=== PATIENT | female | born 1960 | race Caucasian/White ===

== ENCOUNTER 2019-05-27 11:41 | Emergency (ER) | payer OTHER ==
[~2019-05-27] VITALS: Ht 160 cm; Wt 186.0 kg
[2019-05-27] MEDS ORDERED: ZESTRIL10 MG PO (12:03)
[2019-05-27] MEDS ORDERED: PERCOCET 5-3251 EACH PO (16:03)
[2019-05-27] MEDS ORDERED: ZOFRAN4 MG PO (16:03)
[2019-05-29] MEDS ORDERED: OMEPRAZOLE20 MG PO (14:26)
[2019-05-29] MEDS ORDERED: SYNTHROID112 MCG PO (14:27)
[2019-05-29] MEDS ORDERED: CITALOPRAM HBR40 MG PO (14:27)
== END 2019-05-27 16:15 | disposition home or self-care (01) ==
LOC: ED 11:41
DX: K80.70 Calculus of gallbladder and bile duct without cholecystitis without obstruction (principal); I10 Essential (primary) hypertension; F17.200 Nicotine dependence, unspecified, uncomplicated; Z79.899 Other long term (current) drug therapy
CPT/HCPCS: 80053; 81001; 83690; 84703; 85025; 99284

== ENCOUNTER 2019-05-31 11:55 | Day surgery (SDC) | payer OTHER ==
[~2019-05-31] VITALS: Ht 160 cm; Wt 87.1 kg
[~2019-05-31 11:55] MED LIST: CITALOPRAM HBR40 MG PO; LISINOPRIL-HCT1 EACH PO; OMEPRAZOLE20 MG PO; PERCOCET 5-3251 EACH PO; SYNTHROID112 MCG PO; ZESTRIL10 MG PO; ZOFRAN4 MG PO
--- NOTE | 2019-05-31 12:06 | NUR ---
PATIENT'S REQUESTED PRESCRIPTION FOR PATIENT SO HE CAN GET IT FILLED WHILE SHE IS IN SURGERY. DR. ISAAC WROTE PRESCRIPTION. THIS WAS GIVEN TO PATIENT'S , HERMES, TO GO GET FILLED.
--- NOTE | 2019-05-31 15:40 | NUR ---
05/31/19 1540 Kianna Ernst 1535 PATIENT ARRIVES TO PACU UNRESPONSIVE TO PAIN, ORAL AIRWAY IN PLACE. RESP EVEN AND UNLABORED, MASK AT 6 LITERS.
--- NOTE | 2019-05-31 16:29 | NUR ---
PATIENT BACK IN DAY SURGERY ROOM FROM PACU. C/O PAIN 5/10 IN ABDOMEN. GIVEN PUDDING TO EAT. TOLERATING WATER. WILL GIVE PAIN PILL ONCE SHE HAS STARTED EATING PUDDING. ABDOMINAL DRESSINGS CDI. SCDs ON. IV SITE WNL. AT BEDSIDE. CALL LIGHT WITHIN REACH.
--- NOTE | 2019-05-31 16:45 | NUR ---
REQ PAIN MEDICINE FOR 08/29 PAIN. ATE PUDDING THEN NORCO GIVEN.
[2019-05-31] MEDS ORDERED: NORCO 10-325 T1 EACH PO (17:04)
--- NOTE | 2019-05-31 17:36 | NUR ---
PT HAS BEEN UP TO BR VOIDS QS. TOLERATED PAIN MEDS. AMB WELL. WANTS TO GO HOME.
--- NOTE | 2019-06-01 06:41 | OR ---
[facility] [address] [place], [place] [address] Signed DATE OF OPERATION: 05/31/2019 SURGEON: Brayan Isaac MD PREOPERATIVE DIAGNOSES: Zimke-nz-ialskuh cholecystitis, cholelithiasis. POSTOPERATIVE DIAGNOSES: Chmbg-ur-fwklswa cholecystitis, cholelithiasis. PROCEDURE: Laparoscopic cholecystectomy with intraoperative cholangiogram. ESTIMATED BLOOD LOSS: None. FINDINGS: Tresa had a distended, tense gallbladder with dpxwz-la-pzxqgat inflammatory changes and adhesions. The gallbladder was full of pus. The intraoperative cholangiogram was unremarkable. We did have an extra nurse scrub in. We had to add the fan retractor to hold the stomach and the duodenum down and out of the way so we could finish our dissection. INDICATIONS: Tresa is a 59-year-old female, who has been having trouble for about 3 weeks with right upper quadrant epigastric abdominal pain. It has been radiating through to her back. It is worse after meals within 20-30 minutes. She went to her primary care provider and apparently to the emergency room as well. The ultrasound showed multiple mobile stones in the gallbladder. The gallbladder wall thickness was on the upper limits of normal. She had a positive Fall sign. The common bile duct was unremarkable. Her white count was borderline at 10.8, but her liver function tests were fine. She had been asked to see me expeditiously from the emergency room. In the office, I gave Tresa a brochure on the gallbladder. We reviewed the location and function of the gallbladder. She understands laparoscopic versus open cholecystectomy. We did review the expected intraop and postop course. There is risk to the surgery including, but not limited to bleeding, infection, scarring, change in contour of the skin, damage to bowel, damage to main bile duct, incisional hernias, and other unforeseen comorbidities. I had explained to Tresa I thought she was a little bit sick from her gallbladder. We did offer her antibiotics, but she had declined. We had scheduled her the next day for her surgery. She had expressed understanding and wished to proceed. Electronically Signed By: BRAYAN ISAAC MD 06/01/19 0641 PATIENT NAME: TRESA PENDLETON OPERATIVE REPORT DATE OF : 58 REPORT #: [id number] PHYSICIAN: BRAYAN ISAAC MD PCP: DIANNA GARLAND MD REPORT IS CONFIDENTIAL AND NOT TO BE RELEASED WITHOUT AUTHORIZATION [facility] [address] [place], [place] [address] Signed PROCEDURE NOTE: I met with Tresa and her in our preop area. After answering the questions, we took Tresa into the operating room. She was placed under general endotracheal tube anesthesia. She was given appropriate padding and monitoring. Preoperative antibiotics were given along with subcutaneous heparin. SCDs were utilized. All trocars were then placed in usual positions under direct visualization of camera without difficulty. The findings were as above. The gallbladder was elevated and carefully dissected free. The triangle of [place]ot was dissected free and we placed clips across the cystic artery and it was divided. We inserted the intraoperative cholangiocatheter into the junction of the neck of the gallbladder with the cystic duct. The intraoperative cholangiogram was found to be unremarkable. We had introduced the fan retractor and had an additional nurse scrub in, so we could hold stomach and duodenum down and out of the way. We then placed PDS Endoloop over the cystic duct stump and put 2 clips on the cystic duct stump to jamir its location. After this, the gallbladder was removed from the gallbladder fossa with the help of cautery and placed into an EndoCatch bag. The right upper quadrant was irrigated and suctioned out until clear. We then used our laparoscopic suturing device to pass 0 Vicryl suture on either side of the fascia, the subxiphoid, and the mid epigastric trocar sites. This was tied down to close the fascia primarily. After this, all the gas was allowed to escape and all the trocars were removed along with the gallbladder. The gallbladder had been opened on the back table and pictures were taken for photodocumentation by our circulating nurse. The fascia of the supraumbilical trocar site was closed with interrupted simple and [id number]-[id number] 0 Vicryl sutures. Local anesthetic was then copiously injected into all trocar sites. Each trocar site was irrigated and suctioned out until clear. The skin and dermis of each trocar site were closed with interrupted 3-0 subcuticular Monocryl sutures. Dry gauze and tape were applied to all incisions. Tresa was then awakened from her anesthesia, extubated in the OR, and taken to recovery room in stable condition. Brayan Isaac MD ALB/MODL /[id number] cc: Brayan Isaac MD Electronically Signed By: BRAYAN ISAAC MD 06/01/19 0641 PATIENT NAME: TRESA PENDLETON OPERATIVE REPORT DATE OF : 58 REPORT #: [id number] PHYSICIAN: BRAYAN ISAAC MD PCP: DIANNA GARLAND MD REPORT IS CONFIDENTIAL AND NOT TO BE RELEASED WITHOUT AUTHORIZATION [address] [place], [place] [address] Signed Dianna Garland MD Copies: BRAYAN ISAAC MD, JONATHAN MD ~ Electronically Signed By: BRAYAN ISAAC MD 06/01/19 0641 PATIENT NAME: TRESA PENDLETON OPERATIVE REPORT DATE OF : 58 REPORT #: [id number] PHYSICIAN: BRAYAN ISAAC MD PCP: DIANNA GARLAND MD REPORT IS CONFIDENTIAL AND NOT TO BE RELEASED WITHOUT AUTHORIZATION
--- NOTE | 2019-06-04 11:59 | PATH ---
[facility] [address] [facility] [place], [place] [address] Signed SPECIMEN(S): A GALLBLADDER AND STONES SPECIMEN SOURCE: A. GALLBLADDER AND STONES CLINICAL HISTORY: Cholelithiasis/cholecystitis FINAL PATHOLOGIC DIAGNOSIS: Gallbladder, cholecystectomy: - Xanthogranulomatous cholecystitis. - Cholelithiasis. NAL:emb:C2NR MICROSCOPIC EXAMINATION: Histologic sections of all submitted blocks are examined by light microscopy. These findings, together with the gross examination, support the pathologic diagnosis. GROSS DESCRIPTION: The specimen, labeled "SM, A and gallbladder and stones on the requisition," is received in formalin and consists of Specimen: Previously opened gallbladder. Dimensions: 8.5 x 5 x 5 cm. Serosa: [place] and smooth. Cystic Duct: Unobstructed. Calculi: Present, multiple pale brown granular irregular calculi that vary from 0.8-1.4 cm. Mucosa: Pale red and velvety. Wall thickness: 0.2-0.6 cm. Lymph node: No pericystic lymph nodes are identified. Additional: None. Epitaxial Reactor Operator sections are submitted in cassette A1. SS (under the direct supervision of a pathologist) The Gross Description was prepared using a voice recognition system. The report was reviewed for accuracy; however, sound-alike word errors, addition and/or deletions may occur. If there is any question about this report, please contact Client Services. PERFORMING LABORATORY: The technical component was performed by [facility], Marge Welch, PATIENT NAME: JENNY PENDLETON PATHOLOGY DATE OF : 58 REPORT #: [id number] PHYSICIAN: CHRISTAL SILVA PCP: DIANNA COTE MD REPORT IS CONFIDENTIAL AND NOT TO BE RELEASED WITHOUT AUTHORIZATION [facility] [address] [place], [place] [address] [place] [address] (Police Lieutenant: Ainsley Banks MD; CLIA# [id number]). [facility], [address] [address] (Police Lieutenant: Dwight Nair MD; CLIA# [id number]). Diagnostician: Nola Faith MD Pathologist Electronically Signed 06/04/2019 Copies: ~ PATIENT NAME: JENNY PENDLETON PATHOLOGY DATE OF : 58 REPORT #: [id number] PHYSICIAN: CHRISTAL SILVA PCP: DIANNA COTE MD REPORT IS CONFIDENTIAL AND NOT TO BE RELEASED WITHOUT AUTHORIZATION
== END 2019-05-31 17:30 | disposition home or self-care (01) ==
LOC: DS 11:55
PROVIDERS: Colon & Rectal Surgery
PROC: BF13YZZ Fluoroscopy of Gallbladder and Bile Ducts using Other Contrast (ICD-10-PCS; 2019-05-31)
PROC: 0FT44ZZ Resection of Gallbladder, Percutaneous Endoscopic Approach (ICD-10-PCS; principal; 2019-05-31 13:45)
DX: K80.12 Calculus of gallbladder with acute and chronic cholecystitis without obstruction (principal); I10 Essential (primary) hypertension; K21.0 Gastro-esophageal reflux disease with esophagitis; E55.9 Vitamin D deficiency, unspecified; E03.9 Hypothyroidism, unspecified; E66.9 Obesity, unspecified; F32.9 Major depressive disorder, single episode, unspecified; F17.210 Nicotine dependence, cigarettes, uncomplicated; Z79.899 Other long term (current) drug therapy; Z68.33 Body mass index [BMI] 33.0-33.9, adult
CPT/HCPCS: 00790; 74300; J0690; J1100; J1644; J1885; J2370; J2405; J2704; J3010; J7121; Q9967